=== PATIENT | male | born 1955 | race African-American/Black ===

== ENCOUNTER 2016-08-03 10:04 | Inpatient (IN) | payer SELFPAY ==
[~2016-08-03] VITALS: Ht 180.3 cm; Wt 97.1 kg
[~2016-08-03 10:04] MED LIST: MECL-109 PO
[2016-08-03] MEDS ORDERED: NITROGLYCERIN 0.4MG TABLET SL SL PRN (13:00)
[2016-08-03] MEDS ORDERED: MORPHINE SULFATE 4 MG/ML CPJ (NOT FOR IM USE) IV ONE (13:00)
[2016-08-03 13:11] LABS: HEMATOCRIT. 45.4 % (42.0-52.0); HEMOGLOBIN. 15.1 g/dL (14.0-18.0); MEAN CORPUSCULAR HEMOGLOBIN 27.4 pg (28.0-32.0); MEAN CORPUSCULAR HGB CONC 33.1 g/dL (31.0-37.0); MEAN CORPUSCULAR VOLUME 82.6 fL (80.0-94.0); MEAN PLATELET VOLUME 8.6 fl (7.4-10.4); PLATELET 177 x1000/uL (130-400); RED CELL DISTRIBUTION WIDTH 15.1 % (11.6-14.6); WHITE BLOOD COUNT 14.5 x1000/uL (4.5-11.0)
[2016-08-03 13:12] LABS: CLARITY URINE CLEAR (CLEAR); COLOR URINE YELLOW (YELLOW); GLUCOSE URINE NEGATIVE (NEGATIVE); KETONES URINE NEGATIVE (NEGATIVE); LEUKOCYTE ESTERASE URINE NEGATIVE (NEGATIVE); NITRITE URINE NEGATIVE (NEGATIVE); OCCULT BLOOD URINE TRACE (NEGATIVE); PROTEIN URINE NEGATIVE (NEGATIVE); SPECIFIC GRAVITY URINE 1.026 (1.005-1.030); UROBILINOGEN URINE 0.2 E.U./dL (0.2-1.0)
[2016-08-03 13:13] LABS: DIFFERENTIAL COMMENT 1
[2016-08-03] MEDS ORDERED: ONDANSETRON HCL 4MG/2ML VIAL IV ONE (13:15)
[2016-08-03 13:20] LABS: PARTIAL THROMBOPLASTIN TIME 25.6 sec (24.0-34.0); PROTHROMBIN TIME 10.7 sec
[2016-08-03 13:21] LABS: *AMPHETAMINES SCREEN URINE NEGATIVE (NEGATIVE); *BARBITURATES SCREEN URINE NEGATIVE (NEGATIVE); *BENZODIAZEPINES SCREEN URINE NEGATIVE (NEGATIVE); *COCAINE SCREEN URINE NEGATIVE (NEGATIVE); ANION GAP 11; CANNABINOID URINE SCREEN PRESUMTIVE POSITIVE (NEGATIVE); CARBON DIOXIDE 29 mEq/L (21-32); CHLORIDE 106 mEq/L (98-107); ECSTASY MDMA SCREEN URINE NEGATIVE (NEGATIVE); ETHANOL BLOOD < 10 mg/dL; INDEX HEMOLYSI 1 (1-3); INDEX ICTERIC 1 (1-4); INDEX LIPEMIC 1 (1-3); METHADONE URINE SCREEN NEGATIVE (NEGATIVE); OPIATES URINE SCREEN NEGATIVE (NEGATIVE); PHENCYCLIDINE URINE SCREEN NEGATIVE (NEGATIVE)
[2016-08-03 13:30] LABS: ALANINE AMINOTRANSFERASE 25 IU/L (13-61); CALCIUM 8.7 mg/dL (8.5-10.1); CREATINE KINASE 167 IU/L (39-308); CREATINE KINASE MB FRACTION 0.9 ng/mL (0.5-3.6); LIPASE 99 IU/L (73-393); NT PRO B-TYPE NATRIURETIC PEP 66 pg/mL (5-125); TROPONIN I < 0.02 ng/mL (0.00-0.04); UREA NITROGEN BLOOD 13 mg/dL (7-21); eGFR > 60 mL/min (>60)
[2016-08-03 13:33] LABS: BACTERIA URINE TRACE; RBC URINE 0-2 /hpf (0-2); SQUAMOUS EPITHELIAL CELL URINE NONE SEEN /lpf (RARE/1+); WBC URINE 0-2 /hpf (0-2)
[2016-08-03 13:52] LABS: PLATELET ESTIMATE NORMAL
[2016-08-03] MEDS ORDERED: ASPIRIN 325MG TABLET PO ONE (14:00)
[2016-08-03] MEDS ORDERED: ONDANSETRON HCL 4MG/2ML VIAL IV PRN (18:00)
[2016-08-03] MEDS ORDERED: CLONIDINE 0.1MG TABLET PO PRN (18:30)
[2016-08-03 19:30] VITALS: BP 125/77
[2016-08-03 20:00] VITALS: BP 125/77
[2016-08-03] MEDS: ENOXAPARIN 40MG/0.4ML SYR SUBCUT SCH (20:06)
[2016-08-03] MEDS: ACETAMINOPHEN 325MG TABLET PO PRN (20:06)
[2016-08-03] MEDS: HYDROMORPHONE HCL/PF 2MG/ML CPJ IV PRN (20:07)
[2016-08-03] MEDS ORDERED: HYDR-523 PO (22:35)
[2016-08-04] VITALS: BP 123/88
[2016-08-04] MEDS: HYDROMORPHONE HCL/PF 2MG/ML CPJ IV PRN ×2 (02:53→09:47)
[2016-08-04 04:27] VITALS: BP 135/87
[2016-08-04 05:59] LABS: BASOPHILS % 0.2 % (0.0-2.0); EOSINOPHILS % 0.2 % (0.0-5.0); HEMOGLOBIN. 13.1 g/dL (14.0-18.0); LYMPHOCYTES % 10.7 % (20.0-50.0); MEAN CORPUSCULAR HEMOGLOBIN 27.1 pg (28.0-32.0); MEAN CORPUSCULAR HGB CONC 32.8 g/dL (31.0-37.0); MEAN CORPUSCULAR VOLUME 82.6 fL (80.0-94.0); MEAN PLATELET VOLUME 9.3 fl (7.4-10.4); MONOCYTES % 9.3 % (2.0-8.0); NEUTROPHILS % 79.6 % (40.0-76.0); PLATELET 152 x1000/uL (130-400); RED BLOOD CELL COUNT 4.84 mill/uL (4.7-6.1); RED CELL DISTRIBUTION WIDTH 15.1 % (11.6-14.6); WHITE BLOOD COUNT 7.2 x1000/uL (4.5-11.0)
[2016-08-04 07:22] LABS: CHLORIDE 103 mEq/L (98-107); INDEX HEMOLYSI 1 (1-3); INDEX ICTERIC 1 (1-4); INDEX LIPEMIC 1 (1-3)
[2016-08-04 07:35] LABS: ALANINE AMINOTRANSFERASE 20 IU/L (13-61); ALBUMIN 3.3 g/dL (3.4-5.0); ANION GAP 12; CALCIUM 8.2 mg/dL (8.5-10.1); CARBON DIOXIDE 29 mEq/L (21-32); CREATINE KINASE 101 IU/L (39-308); CREATINE KINASE MB FRACTION 0.6 ng/mL (0.5-3.6); TROPONIN I < 0.02 ng/mL (0.00-0.04); UREA NITROGEN BLOOD 12 mg/dL (7-21); eGFR > 60 mL/min (>60)
[2016-08-04 08:00] VITALS: BP 135/73
[2016-08-04] MEDS: ENOXAPARIN 40MG/0.4ML SYR SUBCUT SCH (09:00)
[2016-08-04] MEDS: ASPIRIN 81MG TABLET PO SCH (09:45)
[2016-08-04 12:00] VITALS: BP 125/76
[2016-08-04 16:00] VITALS: BP 163/108
[2016-08-04 19:51] VITALS: BP 152/86
[2016-08-04] MEDS: ACETAMINOPHEN 325MG TABLET PO PRN (21:20)
[2016-08-05] VITALS: BP 144/64
[2016-08-05] MEDS: HYDROMORPHONE HCL/PF 2MG/ML CPJ IV PRN (02:42)
[2016-08-05 04:00] VITALS: BP 144/95
[2016-08-05 08:00] VITALS: BP 150/84
[2016-08-05] MEDS: ASPIRIN 81MG TABLET PO SCH (09:05)
[2016-08-05] MEDS: ENOXAPARIN 40MG/0.4ML SYR SUBCUT SCH (09:05)
[2016-08-05 12:00] VITALS: BP 150/84
[2016-08-05 12:39] VITALS: BP 150/84
== END 2016-08-05 13:10 | disposition home or self-care (01) | DRG 203 ==
LOC: ER 10:10 → 5WST 13:57
PROVIDERS: ADMIT Hospitalist; ATTEND Hospitalist
DX: R07.89 Other chest pain (principal); I10 Essential (primary) hypertension; F12.90 Cannabis use, unspecified, uncomplicated; Z82.49 Family history of ischemic heart disease and other diseases of the circulatory system
CPT/HCPCS: 36415; 70450; 71010; 80053; 80305; 81001; 82550; 82553; 83605; 83690; 83880; 84484; 85025; 85610; 85730; 87040; 87086; 93005; 93306; 96374; 96375; 99285; G0482; J1170; J1650; J2270; J2405

== ENCOUNTER 2016-08-10 18:49 | Emergency (ER) | payer SELFPAY ==
[~2016-08-10] VITALS: Ht 180.3 cm; Wt 97.7 kg
[~2016-08-10 18:49] MED LIST changes: +HYDR-523 PO
[2016-08-10] MEDS ORDERED: KETOROLAC 30MG/ML VIAL IM ONE (22:00)
[2016-08-10 22:36] VITALS: BP 132/66
== END 2016-08-10 22:39 | disposition home or self-care (01) ==
LOC: ER 21:16
DX: R10.32 Left lower quadrant pain (principal); M54.5 Low back pain; F17.210 Nicotine dependence, cigarettes, uncomplicated; Z98.1 Arthrodesis status
CPT/HCPCS: 76705; 96372; 99284; J1885; Z7610

== ENCOUNTER 2017-02-15 23:44 | Emergency (ER) | payer SELFPAY ==
[~2017-02-15] VITALS: Ht 185.4 cm; Wt 95.0 kg
[2017-02-15 23:47] VITALS: BP 167/90
== END 2017-02-16 00:55 | disposition left against medical advice (07) ==
LOC: ER 23:44
DX: Z53.21 Procedure and treatment not carried out due to patient leaving prior to being seen by health care provider (principal)

== ENCOUNTER 2020-01-24 08:01 | Emergency (ER) | payer BC, MEDICAID ==
[~2020-01-24] VITALS: Ht 182.9 cm; Wt 91.0 kg
[~2020-01-24 08:01] MED LIST changes: -MECL-109 PO; +MECL-159 PO
[2020-01-24] MEDS ORDERED: ONDANSETRON HCL 4MG/2ML INJ IV STA (08:26)
[2020-01-24] MEDS ORDERED: SODIUM CHLORIDE 0.9% 1,000 ML IV ONE (08:30)
[2020-01-24] MEDS ORDERED: MECLIZINE 25MG TABLET PO ONE (08:30)
[2020-01-24 08:46] LABS: BASOPHILS % 0.6 % (0.0-2.0); EOSINOPHILS % 0.2 % (0.0-5.0); HEMOGLOBIN. 14.2 g/dL (14.0-18.0); LYMPHOCYTES % 17.7 % (20.0-50.0); MEAN CORPUSCULAR HEMOGLOBIN 27.8 pg (28.0-32.0); MEAN CORPUSCULAR VOLUME 84.2 fL (80.0-94.0); MEAN PLATELET VOLUME 8.9 fl (7.4-10.4); MONOCYTES % 8.5 % (2.0-8.0); PLATELET 182 x1000/uL (130-400); RED CELL DISTRIBUTION WIDTH 15.6 % (11.6-14.6)
[2020-01-24 08:52] LABS: CHLORIDE 104 mEq/L (98-107)
[2020-01-24 10:10] VITALS: BP 143/89
== END 2020-01-24 10:15 | disposition home or self-care (01) ==
LOC: ER 08:36
DX: R42 Dizziness and giddiness (principal); F17.200 Nicotine dependence, unspecified, uncomplicated; F12.10 Cannabis abuse, uncomplicated; Z98.890 Other specified postprocedural states
CPT/HCPCS: 36415; 71045; 80053; 82962; 83880; 84484; 85025; 93005; 96361; 96374; 99285; J2405; J7030; J8597

== ENCOUNTER 2020-03-08 06:56 | Emergency (ER) | payer BC, MEDICAID ==
[~2020-03-08] VITALS: Ht 180.3 cm; Wt 92.0 kg
[2020-03-08] MEDS ORDERED: KETOROLAC 30MG/ML VIAL IV STA (07:28)
[2020-03-08] MEDS ORDERED: SODIUM CHLORIDE 0.9% 1,000 ML IV ONE (07:30)
[2020-03-08] MEDS ORDERED: CYCLOBENZAPRINE 10MG TABLET PO ONE (07:30)
[2020-03-08 08:39] LABS: BASOPHILS % 0.8 % (0.0-2.0); EOSINOPHILS % 0.7 % (0.0-5.0); HEMATOCRIT. 41.1 % (42.0-52.0); HEMOGLOBIN. 13.6 g/dL (14.0-18.0); LYMPHOCYTES % 22.9 % (20.0-50.0); MEAN CORPUSCULAR HEMOGLOBIN 27.8 pg (28.0-32.0); MEAN CORPUSCULAR VOLUME 84.1 fL (80.0-94.0); MEAN PLATELET VOLUME 9.1 fl (7.4-10.4); MONOCYTES % 7.5 % (2.0-8.0); NEUTROPHILS % 68.1 % (40.0-76.0); PLATELET 187 x1000/uL (130-400); RED BLOOD CELL COUNT 4.89 mill/uL (4.7-6.1); RED CELL DISTRIBUTION WIDTH 15.3 % (11.6-14.6)
[2020-03-08 09:25] LABS: CHLORIDE 107 mEq/L (98-107)
[2020-03-08 09:28] LABS: PROTHROMBIN TIME 10.8 sec (9.6-11.0)
[2020-03-08 10:14] LABS: CLARITY URINE CLEAR (CLEAR); COLOR URINE YELLOW (YELLOW); KETONES URINE NEGATIVE (NEGATIVE); LEUKOCYTE ESTERASE URINE NEGATIVE (NEGATIVE); NITRITE URINE NEGATIVE (NEGATIVE); OCCULT BLOOD URINE NEGATIVE (NEGATIVE); PH URINE 5.5 (4.5-8.0); PROTEIN URINE NEGATIVE (NEGATIVE); SPECIFIC GRAVITY URINE 1.016 (1.005-1.030); UROBILINOGEN URINE 0.2 E.U./dL (0.2-1.0)
[2020-03-08 14:29] VITALS: BP 136/76
== END 2020-03-08 14:23 | disposition home or self-care (01) ==
LOC: ER 06:56
DX: M54.12 Radiculopathy, cervical region (principal); R51.9 Headache, unspecified; F12.10 Cannabis abuse, uncomplicated; Z98.890 Other specified postprocedural states
CPT/HCPCS: 36415; 70450; 80053; 81003; 85025; 85610; 93005; 96361; 96374; 99285; J1885; J7030

== ENCOUNTER 2020-04-19 21:04 | Inpatient (IN) | payer BC, MEDICAID ==
[~2020-04-19] VITALS: Ht 188 cm; Wt 93.2 kg
[2020-04-19] MEDS ORDERED: ACETAMINOPHEN 325MG TABLET PO ONE (21:45)
[2020-04-19] MEDS ORDERED: DEXAMETHASONE 10 MG/ML VIAL IV ONE (21:45)
[2020-04-19] MEDS ORDERED: METOCLOPRAMIDE HCL 10MG/2ML VIAL IV ONE (21:45)
[2020-04-19] MEDS ORDERED: SODIUM CHLORIDE 0.9% 1,000 ML IV ONE (21:45)
[2020-04-19] MEDS ORDERED: MECLIZINE 25MG TABLET PO ONE (22:00)
[2020-04-19] MEDS ORDERED: LIDOCAINE 5% PATCH TOP SCH (22:00)
[2020-04-19 22:57] LABS: BASOPHILS % 0.6 % (0.0-2.0); EOSINOPHILS % 1.3 % (0.0-5.0); HEMATOCRIT. 39.3 % (42.0-52.0); LYMPHOCYTES % 20.5 % (20.0-50.0); MEAN CORPUSCULAR HEMOGLOBIN 27.7 pg (28.0-32.0); MEAN CORPUSCULAR VOLUME 83.6 fL (80.0-94.0); MEAN PLATELET VOLUME 8.6 fl (7.4-10.4); MONOCYTES % 10.5 % (2.0-8.0); NEUTROPHILS % 67.1 % (40.0-76.0); PLATELET 172 x1000/uL (130-400); RED BLOOD CELL COUNT 4.69 mill/uL (4.7-6.1); RED CELL DISTRIBUTION WIDTH 14.8 % (11.6-14.6)
[2020-04-19 23:05] LABS: CHLORIDE 109 mEq/L (98-107); PROTHROMBIN TIME 10.5 sec (9.6-11.0)
[2020-04-19 23:07] LABS: CLARITY URINE CLOUDY (CLEAR); COLOR URINE YELLOW (YELLOW); KETONES URINE NEGATIVE (NEGATIVE); LEUKOCYTE ESTERASE URINE NEGATIVE (NEGATIVE); NITRITE URINE NEGATIVE (NEGATIVE); OCCULT BLOOD URINE NEGATIVE (NEGATIVE); PH URINE 7.5 (4.5-8.0); PROTEIN URINE NEGATIVE (NEGATIVE); SPECIFIC GRAVITY URINE 1.022 (1.005-1.030)
[2020-04-19 23:10] LABS: ETHANOL BLOOD < 10 mg/dL
[2020-04-19 23:26] LABS: *AMPHETAMINES SCREEN URINE NEGATIVE (NEGATIVE); *BARBITURATES SCREEN URINE NEGATIVE (NEGATIVE); *BENZODIAZEPINES SCREEN URINE NEGATIVE (NEGATIVE)
[2020-04-19 23:28] LABS: *COCAINE SCREEN URINE NEGATIVE (NEGATIVE); CANNABINOID URINE SCREEN PRESUMTIVE POSITIVE (NEGATIVE); METHADONE URINE SCREEN NEGATIVE (NEGATIVE); OPIATES URINE SCREEN NEGATIVE (NEGATIVE); PHENCYCLIDINE URINE SCREEN NEGATIVE (NEGATIVE)
[2020-04-20] VITALS (8 sets, daily range): BP systolic 143–168; BP diastolic 77–96
[2020-04-20] MEDS ORDERED: MECL-184 MT (02:43)
[2020-04-20] MEDS ORDERED: IOHEXOL-350 100 ML BOTTLE ONE (03:23)
[2020-04-20] MEDS ORDERED: ASPIRIN 325MG EC TABLET PO ONE (05:15)
[2020-04-20] MEDS ORDERED: KETOROLAC 30MG/ML VIAL IV NR (16:00)
[2020-04-20] MEDS ORDERED: ONDANSETRON HCL 4MG/2ML INJ IV PRN (18:45)
[2020-04-20] MEDS ORDERED: AMLODIPINE 5MG TABLET PO NR (21:00)
[2020-04-20] MEDS ORDERED: LIDOCAINE 5% PATCH TOP SCH (21:00)
== END 2020-04-20 22:58 | disposition home or self-care (01) | DRG 103 ==
LOC: ER 21:04 → ENRESERV 04-20 13:09 → 3WST 04-20 14:17
PROVIDERS: ADMIT Internal Medicine; ATTEND Internal Medicine
DX: R51.9 Headache, unspecified (principal); G93.40 Encephalopathy, unspecified; I16.0 Hypertensive urgency; I10 Essential (primary) hypertension; G89.29 Other chronic pain; M54.5 Low back pain; Z98.1 Arthrodesis status; Z87.891 Personal history of nicotine dependence; R42 Dizziness and giddiness; E87.8 Other disorders of electrolyte and fluid balance, not elsewhere classified
CPT/HCPCS: 36415; 70496; 71045; 80053; 80305; 80320; 81003; 83605; 84484; 85025; 93005; 99285; J1100; J1885; J2405; J2765; J7030; J8597; Q9967; G0480

== ENCOUNTER 2021-01-18 07:56 | Emergency (ER) | payer MEDICARE, MEDICAID ==
[~2021-01-18] VITALS: Ht 180.3 cm; Wt 97.0 kg
[~2021-01-18 07:56] MED LIST changes: +MECL-217 MT
[2021-01-18] MEDS ORDERED: CYCLOBENZAPRINE 10MG TABLET PO ONE (08:30)
[2021-01-18] MEDS ORDERED: KETOROLAC 15MG/ML VIAL IV ONE (08:30)
[2021-01-18] MEDS ORDERED: AMLODIPINE 5MG TABLET PO ONE (08:30)
[2021-01-18] MEDS ORDERED: CYCL10TA7 MT (08:55)
[2021-01-18] MEDS ORDERED: IBUP-2028 MT (08:56)
[2021-01-18 09:05] VITALS: BP 126/73
== END 2021-01-18 09:08 | disposition home or self-care (01) ==
LOC: ER 07:56
DX: S29.012A Strain of muscle and tendon of back wall of thorax, initial encounter (principal); I10 Essential (primary) hypertension; X58.XXXA Exposure to other specified factors, initial encounter; Y93.89 Activity, other specified; Y92.89 Other specified places as the place of occurrence of the external cause; M54.59 Other low back pain; G89.29 Other chronic pain
CPT/HCPCS: 96374; 99283; J1885

== ENCOUNTER 2021-02-22 09:12 | Emergency (ER) | payer MEDICARE, MEDICAID ==
[~2021-02-22] VITALS: Ht 180.3 cm; Wt 95.0 kg
[~2021-02-22 09:12] MED LIST changes: +CYCL10TA7 MT; +IBUP-2028 MT
[2021-02-22 09:25] VITALS: BP 129/76
[2021-02-22 10:33] LABS: BASOPHILS % 0.5 % (0.0-2.0); EOSINOPHILS % 0.8 % (0.0-5.0); HEMATOCRIT. 42.9 % (42.0-52.0); MEAN CORPUSCULAR HEMOGLOBIN 27.8 pg (28.0-32.0); MEAN CORPUSCULAR VOLUME 85.2 fL (80.0-94.0); MEAN PLATELET VOLUME 8.1 fl (7.4-10.4); MONOCYTES % 9.1 % (2.0-8.0); NEUTROPHILS % 67.6 % (40.0-76.0); PLATELET 201 x1000/uL (130-400); RED BLOOD CELL COUNT 5.04 mill/uL (4.7-6.1); RED CELL DISTRIBUTION WIDTH 15.3 % (11.6-14.6)
[2021-02-22 10:39] LABS: CHLORIDE 106 mEq/L (98-107)
== END 2021-02-22 12:24 | disposition home or self-care (01) ==
LOC: ER 09:12
DX: J06.9 Acute upper respiratory infection, unspecified (principal); I10 Essential (primary) hypertension; F12.10 Cannabis abuse, uncomplicated; Z20.822 Contact with and (suspected) exposure to COVID-19; Z98.1 Arthrodesis status
CPT/HCPCS: 36415; 71045; 80053; 83880; 84484; 85025; 99284

== ENCOUNTER 2021-02-26 01:30 | Emergency (ER) | payer MEDICARE, MEDICAID ==
[~2021-02-26] VITALS: Ht 175.3 cm; Wt 81.0 kg
[2021-02-26 01:41] VITALS: BP 154/88
== END 2021-02-26 06:44 | disposition left against medical advice (07) ==
LOC: ER 01:30
DX: Z53.21 Procedure and treatment not carried out due to patient leaving prior to being seen by health care provider (principal)

== ENCOUNTER 2022-03-20 04:54 | Emergency (ER) | payer BC, MEDICAID ==
[~2022-03-20 04:54] MED LIST changes: +CYCL10TA21 MT; -CYCL10TA7 MT
== END 2022-03-20 05:42 | disposition left against medical advice (07) ==
LOC: ER 05:21
DX: Z13.9 Encounter for screening, unspecified (principal)
CPT/HCPCS: 99281

== ENCOUNTER 2023-09-04 05:21 | Emergency (ER) | payer BC, MEDICAID ==
[~2023-09-04] VITALS: Ht 180.3 cm; Wt 95.0 kg
[~2023-09-04 05:21] MED LIST changes: -MECL-159 PO; +MECL-299 PO
[2023-09-04 05:37] VITALS: BP 173/105; TEMP 97.6; O2SAT 98
[2023-09-04 05:53] VITALS: PULSE 110; RESP 16
== END 2023-09-04 07:20 | disposition left against medical advice (07) ==
LOC: ER 05:21
DX: I10 Essential (primary) hypertension (principal); Z53.21 Procedure and treatment not carried out due to patient leaving prior to being seen by health care provider